=== PATIENT | male | born 1980 | race Caucasian/White ===

== ENCOUNTER 2018-09-14 20:33 | Emergency (ER) | payer MEDICAID ==
[2018-09-15 01:33] VITALS: BP 105/70
== END 2018-09-15 01:40 | disposition home or self-care (01) ==
LOC: ED 09-15 01:30
DX: S50.311A Abrasion of right elbow, initial encounter (principal); F10.120 Alcohol abuse with intoxication, uncomplicated; F17.200 Nicotine dependence, unspecified, uncomplicated; X58.XXXA Exposure to other specified factors, initial encounter; Y93.89 Activity, other specified; Y92.89 Other specified places as the place of occurrence of the external cause; Y99.8 Other external cause status
CPT/HCPCS: 99283